=== PATIENT | female | born 1950 | race Hispanic/Latino ===

== ENCOUNTER 2016-11-19 08:06 | Emergency (ER) | payer MEDICAID, MEDICARE ==
[~2016-11-19] VITALS: Ht 149.9 cm; Wt 86.4 kg
[~2016-11-19 08:06] MED LIST: HYDR-4003 PO; IBUP-1827 PO; ZIT250 PO
[2016-11-19 08:13] VITALS: BP 88/47; PULSE 64; RESP 16; O2SAT 99
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
[2016-11-19 08:42] LABS: BASOPHILS % (AUTO) 0.3 % (0-3); EOSINOPHILS % (AUTO) 3.8 % (0-5); MONOCYTES % (AUTO) 5.6 % (4-12); Mean Corpuscular Hemoglobin 26.3 pg (27.0-35.0); Mean Corpuscular Volume 81.6 fL (81-100); NEUTROPHILS % (AUTO) 72.5 % (40-74); Platelet Count 255 bil/L (150-400)
[2016-11-19 08:59] VITALS: BP 141/66; PULSE 70; RESP 16; O2SAT 99
--- NOTE | 2016-11-19 09:12 | DRSVH ---
PROCEDURE: CT ANG CHEST/ABD W/WO CONTRAST ([id number]) INDICATIONS: Adb pain and CP TECHNIQUE: Precontrast 5 mm thick sections acquired from the lung apices to the iliac crests. After the adminis tration of intravenous contrast, 3 mm thick sections again acquired from the lung apices to the iliac crests. 3-dimensional maximum intensity projection (MIP) oblique sagittal and coronal reformats wer e then acquired, and/or 3-dimensional volume rendering reformats. For radiation dose reduction, the following was used: automated exposure control. COMPARISON: [facility], MR, LUMBAR SPINE W/O CONTRAST, 06/27/2014, 19:18. FINDINGS: Image quality: Excellent. AORTA: Intramural hematoma: Absent Maximum hematoma thickness: Not applicable Focal contrast enhancement: Intramural blood pool (< 2 mm neck or imperceptible communication with aortic lumen): Absent Ulcer-like projection (broad communication with aortic lumen > 3 mm): Absent Dissection: Absent Walter classification: Not applicable Maximum aortic diameter: 3.4 cm. [If Walter A dissection, > 5.0 cm has a poorer prognosis. If Sta nford B dissection, > 4.0 cm has a poorer prognosis.] Periaortic hematoma: Absent CHEST: Lungs and pleura: No acute airspace opacities. No pleural effusions or pneumothorax. Central and p eripheral airways are patent and normal in caliber. Mediastinum: Heart size is normal. Atherosclerotic calcifications noted in the left coronary vascula ture, aortic arch and the brachiocephalic artery. No pericardial effusion. No mediastinal or hilar a denopathy by size criteria. Central pulmonary arteries are normal in size. Esophagus is normal in c aliber. No hiatal hernias. Bones and chest wall: No axillary adenopathy by size criteria. . No suspicious bony lesions. No v ertebral body compression fractures. ABDOMEN: Vasculature: Celiac trunk and mesenteric arteries are patent. Renal arteries are also patent. Solid organs: Liver and spleen are normal in size. Mild, diffuse fatty infiltration of the liver is noted. Punctate calcification noted in the liver compatible sequela prior granulomatous disease. Gall bladder is surgically absent. Biliary system is non dilated. Pancreas enhances normally. No adrena l nodules. Both kidneys are normal in size and enhancement, without hydronephrosis. Peritoneum and bowel: No free fluid or air. Bowel loops are normal in caliber and wall thickness. Nodes and vessels: No retroperitoneal or mesenteric adenopathy by size criteria. Inferior vena cava is normal in morphology. Bones: No suspicious bony lesions. L1 burst fracture is not significantly changed in appearance com pared to prior MRI. Resting spine degenerative disc disease is noted. No acute vertebral body jose cass fractures. Miscellaneous: No ventral hernias. IMPRESSION: 1. No evidence of aortic dissection. 2. No aortic aneurysm identified. 3. Atherosclerosis including the left coronary vascular. 4. L1 burst fracture not significantly changed compared to prior lumbar spine MRI obtained 06/27/2014. 5. Hepatic steatosis. Dictated by: Nessa Graham MD, PhD on 11/19/2016 at 8:56 Approved by: Nessa Graham MD, PhD on 11/19/2016 at 9:10
--- NOTE | 2016-11-19 09:41 | DRSVH ---
PROCEDURE: X-RAY CHEST ONE VIEW, PORTABLE ([id number]) INDICATIONS: abd/chest pain TECHNIQUE: One view of the chest was acquired. COMPARISON: [facility], CR, XR CHEST 2VW, 11/28/2015, 23:14. [facility], CR, CHEST 1VW (PORTABLE), 10/20/2014, 17:55. [facility], CR, CHEST 1VW (PORTABLE), 4, 18:54. FINDINGS: Surgical changes and devices: None. Lungs and pleura: No pleural effusions or pneumothorax. Lungs are clear. Mediastinum: Mediastinal contours appear normal. Heart size is normal. Bones and chest wall: No suspicious bony lesions. Overlying soft tissues appear unremarkable. IMPRESSION: No acute process. Dictated by: Dorian Sandoval M.D. on 11/19/2016 at 9:39 Approved by: Dorian Sandoval M.D. on 11/19/2016 at 9:39
[2016-11-19 10:39] LABS: Magnesium 1.8 mg/dL (1.6-2.6)
[2016-11-19 10:42] LABS: TROPONIN T < 0.010 ug/L (0.0-0.011)
[2016-11-19 10:44] VITALS: BP 129/65; PULSE 66; RESP 16; O2SAT 98
[2016-11-19 12:50] VITALS: BP 123/62; PULSE 72; RESP 20; O2SAT 98
[2016-11-19 14:31] VITALS: BP 117/64; PULSE 73; RESP 15; O2SAT 97
[2016-12-24] MEDS ORDERED: IBUP800T28 PO (17:30)
== END 2016-11-19 14:30 | disposition home or self-care (01) ==
LOC: SED 08:06
DX: R07.89 Other chest pain (principal); I10 Essential (primary) hypertension
CPT/HCPCS: 36415; 71010; 71275; 74175; 80053; 83735; 84484; 85025; 93005; 99285; Q9967

== ENCOUNTER 2017-01-11 08:37 | Day surgery (SDC) | payer MEDICARE ==
[~2017-01-11] VITALS: Ht 162.6 cm; Wt 86.0 kg
[~2017-01-11 08:37] MED LIST changes: +0.9% Sodium Chloride 1,000 ML IV PRN; +0.9% Sodium Chloride 1,000 ML IV SCH; +IBUP800T28 PO; +Sodium Chloride LOK Flush 10 mL Syringe IV PRN; +fentaNYL-PF 50 mCg/mL 2 mL Inj IVPUSH PRN
[2017-01-11] MEDS ORDERED: CHOL200025 PO (09:04)
[2017-01-11 09:05] VITALS: BP 130/76; PULSE 68; RESP 16; O2SAT 95
[2017-01-11 10:01] VITALS: BP 114/60; PULSE 66; RESP 16; O2SAT 95
[2017-01-11 10:11] VITALS: BP 120/62; PULSE 65; RESP 16; O2SAT 98
[2017-01-11 10:21] VITALS: BP 132/73; PULSE 65; RESP 16; O2SAT 100
--- NOTE | 2017-01-11 14:38 | ENDO ---
[address] [address] ENDOSCOPY PROCEDURE PATIENT: ESTELLE PARR : 1950 MR#: [id number] ADMIT: 01/11/2017 JOB ID: [id number] PROCEDURE: Colonoscopy. INDICATION: Screening. Patient's ASA classification is II. Mallampati score is II. MEDICATIONS: Versed at 3 mg, fentanyl 75 mcg. INSTRUMENT USED: [id number]. Prep quality was fair. PROCEDURE DETAILS: After informed consent was obtained, the patient was brought into the GI suite, where she was placed on oxygen via nasal cannula and monitored with continuous pulse oximeter, telemetry, and blood pressure monitoring. A time-out was performed. Then, she was placed in a left lateral decubitus position and medications were administered for sedation. Digital rectal exam revealed external hemorrhoids. The colonoscope was then inserted into the rectum and advanced under direct visualization to the cecum, which was identified by the presence of the ileocecal valve and appendiceal orifice. Once the cecum was reached, the colonoscope was withdrawn back into the rectum as the mucosa and lumen were examined. In the rectum, retroflexion was performed. Following retroflexion, remaining air in the rectum was suctioned, and procedure was completed. FINDINGS: 1. In the ascending colon, there was an approximately 5 mm sessile polyp that was removed with a cold snare. 2. In the transverse colon, there was a diminutive polyp that was removed with cold biopsy forceps. 3. Retroflexed views in the rectum revealed moderate-sized internal hemorrhoids. IMPRESSION: 1. Ascending colon polyp. 2. Transverse polyp. 3. Internal and external hemorrhoids. RECOMMENDATIONS: 1. Fiber rich diet. 2. Repeat colonoscopy pending polyp pathology results. 3. Follow up in GI clinic as needed. COMPLICATIONS: None. ESTIMATED BLOOD LOSS: Less than 5 mL.
--- NOTE | 2017-01-12 11:07 | PATH ---
SURGICAL PATHOLOGY Attending Physician:Renan Rouse CASE STATUS: Signed Out PATIENT NAME: JIM PARR PID: [id number] : 1950 DATE COLLECTED:01/11/2017 17:31 SPECIMEN: 1: Colon, Biopsy 2: Colon, Biopsy CLINICAL HISTORY: 1). ASCENDING COLON POLYP 2). TRANSVERSE COLON POLYP FINAL DIAGNOSIS: 1.ASCENDING COLON POLYP: SESSILE SERRATED ADENOMA INVOLVING TWO BIOPSY FRAGMENTS. 2.TRANSVERSE COLON POLYP: POLYPOID-SHAPED FRAGMENT OF COLON MUCOSA ASSOCIATED WITH PROMINENT MUCOSAL LYMPHOID AGGREGATES. ICD10 CODE D12.2 GROSS DESCRIPTION: The specimen is received in two formalin filled containers labeled with the patient's name. 1). The specimen is sublabeled "ascending colon polyp" and consists of 3 portions of tissue which aggregate to 0.3 x 0.3 x 0.3 CM. The specimen is entirely submitted in cassette 1A. 2). The specimen is sublabeled "transverse colon polyp" and consists of a 0.4 x 0.3 x 0.2 CM portion of tissue which is entirely submitted in cassette 2A. 01/11/2017 DAC MICRO DESCRIPTION: See diagnosis. ICD-9 CODES: CPT CODES: 1: 90837 2: 61616 Electronically Signed Out Ranulfo Vicente MD [facility] Pathology [facility] [address], [place] [address] Technical component performed at [facility], [address] [place] [address] [address], [place], [address]
== END 2017-01-11 23:59 | disposition home or self-care (01) ==
LOC: END 08:37 → MERGE 08:37 → END 23:59
PROVIDERS: ATTEND Internal Medicine Gastroenterology
DX: Z12.11 Encounter for screening for malignant neoplasm of colon (principal); D12.2 Benign neoplasm of ascending colon; K63.5 Polyp of colon; K64.8 Other hemorrhoids
CPT/HCPCS: 45385; 88305; G0500; J2250; J3010; J7030

== ENCOUNTER 2017-07-04 13:20 | Emergency (ER) | payer MEDICARE ==
[~2017-07-04] VITALS: Ht 149.9 cm; Wt 85.0 kg
[~2017-07-04 13:20] MED LIST changes: -0.9% Sodium Chloride 1,000 ML IV PRN; -0.9% Sodium Chloride 1,000 ML IV SCH; +CHOL200025 PO; -Sodium Chloride LOK Flush 10 mL Syringe IV PRN; -fentaNYL-PF 50 mCg/mL 2 mL Inj IVPUSH PRN
[2017-07-04 13:28] VITALS: BP 154/86; PULSE 74; RESP 18; O2SAT 98
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
== END 2017-07-04 14:43 | disposition left against medical advice (07) ==
LOC: SED 13:20
DX: R51 Headache (principal); Z53.21 Procedure and treatment not carried out due to patient leaving prior to being seen by health care provider